=== PATIENT | male | born 1930 | race Caucasian/White ===

== ENCOUNTER 2017-08-21 14:52 | Inpatient (IN) ==
--- NOTE | 2017-08-21 17:39 | CT ---
EXAM: CT chest without intravenous contrast 08/21/2017. Sagittal and coronal reformatted images obt ained HISTORY: Cough COMPARISON: None. FINDINGS: The heart size appears within normal limits. There is no pericardial effusion. Small hiatal hernia. 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 Multifocal atelectasis. There is no pulmonary consolidation, effusion or pneumothorax. Limited views of the upper abdomen show no acute abnormality. IMPRESSION: 1. 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 2. Multifocal atelectasis 3. Small hiatal hernia.
--- NOTE | 2017-08-21 18:58 | ED.PDOC ---
General ED Provider: Dr. NANETTE STALEY Chief Complaint: Respiratory Complaint Stated Complaint: cough, flu like symptoms Time Seen by Physician: 15:00 Mode of Arrival: Wheelchair Information Source: Patient Exam Limitations: No limitations Primary Care Provider: ROSSANA GERONIMO Nursing and Triage Documentation Reviewed and Agree: Yes Reviewed sepsis parameters & appropriate labs ordered?: Yes System Inflammatory Response Syndrome: Not Applicable Sepsis Protocol: For patient's 13 years and over: Temp is 96.8 and below OR 101 and greater Pulse >90 BPM Resp >20/minute Acutely Altered Mental Status Are patient's symptoms suggestive of a new infection, such as: -Pneumonia -Skin, Soft Tissue -Endocarditis -UTI -Bone, Joint Infection -Implantable Device -Acute Abdominal Infection -Wound Infection -Meningitis -Blood Stream Catheter Infection -Unknown System Inflammatory Response Syndrome: Not Applicable Respiratory Complaint Exam - Respiratory Complaint/Exam Onset/Duration: flu like symptoms x1 day Symptoms Are: Still present Timing: Constant Initial Severity: Moderate Current Severity: Moderate Location: Throat, Chest Character: Reports: Non-productive cough Aggravating: Reports: URI Alleviating: Reports: None Associated Signs and Symptoms: Reports: URI, Nasal congestion, Sore throat Related History: Reports: Similar episode History of Healthcare-Acquired Pneumonia: No Review of Systems - Review Of Systems Constitutional: Reports: Chills Eyes: Reports: No symptoms Ears, Nose, Mouth, Throat: Reports: No symptoms Respiratory: Reports: Cough, Wheezing Cardiac: Reports: No symptoms GI: Reports: No symptoms : Reports: No symptoms Musculoskeletal: Reports: No symptoms Skin: Reports: No symptoms Neurological: Reports: No symptoms Endocrine: Reports: No symptoms Hematologic/Lymphatic: Reports: No symptoms All Other Systems: Reviewed and Negative Past Medical History - Past Medical History Previously Healthy: Yes Endocrine: Reports: DM 2 Cardiovascular: Reports: Hypertension Respiratory: Reports: None Hematological: Reports: None Gastrointestinal: Reports: None Genitourinary: Reports: None Neuro/Psych: Reports: None Musculoskeletal: Reports: None Cancer: Reports: None - Surgical History General Surgical History: Reports: None - Family History Family History: Reports: None - Social History Smoking Status: Former smoker Hx Substance Use: No Alcohol Screening: None Physical Exam - Physical Exam Appearance: Well-appearing, No pain distress, Well-nourished Eyes: KYLE, EOMI, Conjunctiva clear ENT: Ears normal, Nose normal, Oropharynx normal Respiratory: Airway patent, Breath sounds clear, Breath sounds equal, Respirations nonlabored Cardiovascular: RRR, Pulses normal, No rub, No murmur GI/: Soft, Nontender, No masses, Bowel sounds normal, No Organomegaly Musculoskeletal: Normal strength, ROM intact, No edema, No calf tenderness Skin: Warm, Dry, Normal color Neurological: Sensation intact, Motor intact, Reflexes intact, Cranial nerves intact, Alert, Oriented Psychiatric: Affect appropriate, Mood appropriate Interpretation - Radiology Interpretation Radiology Interpretation By: Radiologist Radiology Results: No acute changes Physician Notification - Case Discussed Physician Notified: price Time of Notification: 18:59 Admit To: Inpatient Critical Care Note - Critical Care Note Total Time (mins): 0 Course - Course Hematology/Chemistry: 08/21/17 16:41 08/21/17 16:41 Orders, Labs, Meds: Lab Review 08/21/17 08/21/17 08/21/17 16:41 16:41 16:41 WBC 6.13 RBC 4.15 L Hgb 13.0 L Hct 39.0 L MCV 94.0 MCH 31.3 H MCHC 33.3 RDW Coeff of Britney 13.9 Plt Count 161 Immature Gran % (Auto) 0.3 Neut % (Auto) 86.7 Lymph % (Auto) 5.2 L Lassen % (Auto) 6.4 Eos % (Auto) 1.1 Baso % (Auto) 0.3 Immature Gran # (Auto) 0.0 Neut # 5.3 Lymph # 0.3 L Lassen # 0.4 Eos # 0.1 Baso # 0.0 Sodium 138 Potassium 4.7 Chloride 101 Carbon Dioxide 28 Anion Gap 13.7 BUN 16 Creatinine 1.02 Estimated GFR (MDRD) 69.00 BUN/Creatinine Ratio 15.68 Glucose 160 H Lactic Acid Calcium 9.7 Total Bilirubin 0.6 AST 20 ALT 12 Alkaline Phosphatase 44 L Total Protein 6.8 Albumin 3.2 L Globulin 3.6 Albumin/Globulin Ratio 0.89 Procalcitonin < 0.05 Influenza A (Rapid) Influenza B (Rapid) 08/21/17 08/21/17 16:41 16:41 WBC RBC Hgb Hct MCV MCH MCHC RDW Coeff of Britney Plt Count Immature Gran % (Auto) Neut % (Auto) Lymph % (Auto) Lassen % (Auto) Eos % (Auto) Baso % (Auto) Immature Gran # (Auto) Neut # Lymph # Lassen # Eos # Baso # Sodium Potassium Chloride Carbon Dioxide Anion Gap BUN Creatinine Estimated GFR (MDRD) BUN/Creatinine Ratio Glucose Lactic Acid 22.7 H Calcium Total Bilirubin AST ALT Alkaline Phosphatase Total Protein Albumin Globulin Albumin/Globulin Ratio Procalcitonin Influenza A (Rapid) Positive by naat H Influenza B (Rapid) Negative by naat Orders Category Date Time Status BLOOD CULTURE (ED ONLY) Stat LAB 08/21/17 16:41 Received CBC W/ AUTO DIFF Stat LAB 08/21/17 16:41 Completed COMPREHENSIVE METABOLIC PANEL Stat LAB 08/21/17 16:41 Completed FLU A/B MOLECULAR Stat LAB 08/21/17 16:41 Completed LACTIC ACID Stat LAB 08/21/17 16:41 Completed MOLECULAR GROUP A STREP Stat LAB 08/21/17 16:41 Completed PROCALCITONIN Stat LAB 08/21/17 16:[address] CHEST W/O CONTRAST Stat RADS 08/21/17 16:21 Completed Vital Signs: Temp Pulse Resp BP Pulse Ox 08/21/17 14:54 99.4 F 92 H 22 121/68 94 L Departure - Departure Time of Disposition: 18:58 Disposition: HOME SELF-CARE Discharge Problem: Influenza A Anemia Qualifiers: Anemia type: unspecified type Qualified Code(s): D64.9 - Anemia, unspecified Instructions: Influenza (ED) Condition: Good Pt referred to PMD for follow-up: Yes IPMP verified?: Yes Additional Instructions: Please call your Family Physician as soon as possible to schedule a follow-up appointment. Allergies/Adverse Reactions: Allergies aspirin Adverse Reaction (Verified 08/21/17 15:06) Home Medications: Ambulatory Orders Calcium Carbonate/Vitamin D3 [Calcium 600 + Vit D Tablet] 1 each PO BID Clonidine HCl [Clonidine HCl ER] 0.1 mg PO BID 08/21/17 Finasteride [Proscar] 5 mg PO DAILY 08/21/17 Glipizide [Glipizide Xl] 5 mg PO BID 08/21/17 Levothyroxine Sodium 137 mcg PO DAILY 08/21/17 Lisinopril [Zestril] 10 mg PO BID 08/21/17 Metformin HCl [Metformin HCl ER] 500 mg PO BID 08/21/17 Pioglitazone HCl [Actos] 30 mg PO DAILY 08/21/17 Pravastatin Sodium [Pravachol] 80 mg PO DAILY 08/21/17 Tamsulosin HCl [Flomax] 0.4 mg PO DAILY 08/21/17 Disposition Discussed With: Patient
[2017-08-21] MEDS ORDERED: TYLENOL PO PRN (19:51)
[2017-08-21] MEDS ORDERED: ZOSYN 3.375 GM 3.375 GM in SODIUM CHLORIDE 50 ML IV SCH (20:00)
[2017-08-21] MEDS ORDERED: SOLU-MEDROL 40 MG IVP SCH (20:00)
[2017-08-21] MEDS ORDERED: VANCOMYCIN 1,000 MG in SODIUM CHLORIDE 200 ML IV SCH (20:00)
[2017-08-21] MEDS ORDERED: GLIPIZIDE 5 MG PO SCH (21:00)
[2017-08-21] MEDS ORDERED: CLONIDINE HCL 0.1 MG PO SCH (21:00)
[2017-08-21] MEDS ORDERED: NON-FORMULARY MEDICATION (Metformin Hcl [Metformin Hcl Er] 500 MG) PO SCH (21:00)
[2017-08-21] MEDS ORDERED: NON-FORMULARY MEDICATION (Calcium Carbonate/Vitamin D3 [Calcium 600 + Vit D Tablet] 1 EACH PO SCH (21:00)
[2017-08-21 21:39] VITALS: BMI 38.3
[2017-08-21] MEDS ORDERED: PROSCAR PO STA (22:35)
[2017-08-21] MEDS ORDERED: PRAVACHOL PO STA (22:35)
[2017-08-21] MEDS ORDERED: GLUCOTROL ONE (22:47)
[2017-08-21] MEDS ORDERED: CATAPRES ONE (22:47)
[2017-08-21] MEDS ORDERED: SOLU-MEDROL 40 MG ONE (22:48)
[2017-08-21] MEDS ORDERED: GLUCOPHAGE ONE (22:48)
[2017-08-21] MEDS: TAMIFLU PO SCH ×2 (23:12→23:46)
[2017-08-21] MEDS: ZESTRIL PO SCH (23:12)
[2017-08-21] MEDS: SODIUM CHLORIDE 1,000 ML IV SCH (23:13)
[2017-08-21] MEDS: LOVENOX SUBCUT SCH (23:44)
[2017-08-22] MEDS ORDERED: ZOSYN 3.375 GM 3.375 GM in SODIUM CHLORIDE 50 ML IV SCH (05:00)
[2017-08-22] MEDS ORDERED: SOLU-MEDROL 40 MG ONE (05:16)
[2017-08-22] MEDS: DUONEB NEB SCH ×4 (05:45→16:50)
[2017-08-22] MEDS ORDERED: LEVOTHYROXINE SODIUM 137 MCG PO SCH ×2 (06:30→09:00)
[2017-08-22] MEDS: VANCOMYCIN 1 GM in SODIUM CHLORIDE 250 ML IV SCH ×2 (08:47→20:33)
[2017-08-22] MEDS: LOVENOX SUBCUT SCH (08:48)
[2017-08-22] MEDS: SYNTHROID PO SCH ×2 (08:49→08:50)
[2017-08-22] MEDS: SOLU-MEDROL 40 MG IVP SCH ×2 (08:49→20:33)
[2017-08-22] MEDS: CATAPRES PO SCH ×2 (08:49→20:32)
[2017-08-22] MEDS: GLUCOPHAGE PO SCH ×2 (08:50→17:05)
[2017-08-22] MEDS: GLUCOTROL PO SCH ×2 (08:50→20:33)
[2017-08-22] MEDS: TAMIFLU PO SCH ×2 (08:50→20:32)
[2017-08-22] MEDS: ZESTRIL PO SCH ×2 (08:50→20:32)
[2017-08-22] MEDS: FLOMAX PO SCH (08:50)
[2017-08-22] MEDS: CALCIUM 500 + VIT D 200 MG TABLET PO SCH ×2 (08:50→20:32)
[2017-08-22] MEDS ORDERED: NON-FORMULARY MEDICATION (Pravastatin Sodium [Pravachol] 80 MG) PO SCH ×2 (09:00→21:00)
[2017-08-22] MEDS ORDERED: ACTOS PO SCH (09:00)
[2017-08-22] MEDS ORDERED: PROSCAR PO SCH (09:00)
[2017-08-22] MEDS ORDERED: PIOGLITAZONE HCL 30 MG PO SCH (09:00)
[2017-08-22] MEDS: ZOSYN 3.375 GM 3.375 GM in SODIUM CHLORIDE 50 ML IV SCH ×3 (12:00→23:56)
[2017-08-22] MEDS: SODIUM CHLORIDE 1,000 ML IV SCH (15:55)
[2017-08-22] MEDS: PRAVACHOL PO SCH (20:32)
[2017-08-22] MEDS: PROSCAR PO SCH (20:32)
[2017-08-22] MEDS: ACTOS PO SCH (21:10)
[2017-08-22] MEDS ORDERED: DUONEB NEB ONE (23:10)
[2017-08-22] MEDS: ATROVENT 0.02% NEB NEB SCH (23:10)
[2017-08-23] MEDS: ATROVENT 0.02% NEB NEB SCH ×3 (05:05→16:30)
[2017-08-23] MEDS: ZOSYN 3.375 GM 3.375 GM in SODIUM CHLORIDE 50 ML IV SCH ×4 (05:13→23:08)
[2017-08-23] MEDS: SYNTHROID PO SCH ×2 (05:39)
[2017-08-23] MEDS: VANCOMYCIN 1 GM in SODIUM CHLORIDE 250 ML IV SCH ×2 (08:20→20:39)
[2017-08-23] MEDS: CATAPRES PO SCH ×2 (08:21→20:37)
[2017-08-23] MEDS: FLOMAX PO SCH (08:21)
[2017-08-23] MEDS: LOVENOX SUBCUT SCH (08:21)
[2017-08-23] MEDS: ZESTRIL PO SCH ×2 (08:21→20:37)
[2017-08-23] MEDS: TAMIFLU PO SCH ×2 (08:21→20:37)
[2017-08-23] MEDS: CALCIUM 500 + VIT D 200 MG TABLET PO SCH ×2 (08:21→20:37)
[2017-08-23] MEDS: GLUCOPHAGE PO SCH ×2 (08:21→16:41)
[2017-08-23] MEDS: GLUCOTROL PO SCH ×2 (08:21→20:37)
[2017-08-23] MEDS: SOLU-MEDROL 40 MG IVP SCH ×2 (09:08→20:36)
[2017-08-23] MEDS: SODIUM CHLORIDE 1,000 ML IV SCH (16:39)
[2017-08-23] MEDS: PROSCAR PO SCH (20:36)
[2017-08-23] MEDS: ACTOS PO SCH (20:36)
[2017-08-23] MEDS: PRAVACHOL PO SCH (20:39)
[2017-08-24] MEDS: ATROVENT 0.02% NEB NEB SCH ×4 (00:05→17:59)
[2017-08-24] MEDS: SYNTHROID PO SCH ×2 (05:51→05:52)
[2017-08-24] MEDS: ZOSYN 3.375 GM 3.375 GM in SODIUM CHLORIDE 50 ML IV SCH ×3 (05:53→17:58)
[2017-08-24] MEDS: LOVENOX SUBCUT SCH ×2 (09:23→09:32)
[2017-08-24] MEDS: TAMIFLU PO SCH ×2 (09:24→21:43)
[2017-08-24] MEDS: ZESTRIL PO SCH ×2 (09:24→21:43)
[2017-08-24] MEDS: SOLU-MEDROL 40 MG IVP SCH (09:24)
[2017-08-24] MEDS: FLOMAX PO SCH (09:25)
[2017-08-24] MEDS: CALCIUM 500 + VIT D 200 MG TABLET PO SCH ×2 (09:25→21:43)
[2017-08-24] MEDS: GLUCOTROL PO SCH ×2 (09:25→21:43)
[2017-08-24] MEDS: GLUCOPHAGE PO SCH ×2 (09:25→17:58)
[2017-08-24] MEDS: CATAPRES PO SCH ×2 (09:25→21:44)
[2017-08-24] MEDS: VANCOMYCIN 1 GM in SODIUM CHLORIDE 250 ML IV SCH ×2 (10:28→21:44)
[2017-08-24] MEDS: SODIUM CHLORIDE 1,000 ML IV SCH (18:16)
[2017-08-24] MEDS ORDERED: LASIX IVP STA (18:36)
[2017-08-24] MEDS: PRAVACHOL PO SCH (21:44)
[2017-08-24] MEDS: ACTOS PO SCH (21:44)
[2017-08-24] MEDS: PROSCAR PO SCH (21:44)
[2017-08-25] MEDS: ZOSYN 3.375 GM 3.375 GM in SODIUM CHLORIDE 50 ML IV SCH ×2 (00:05→05:54)
[2017-08-25] MEDS: ATROVENT 0.02% NEB NEB SCH ×5 (00:36→23:20)
[2017-08-25] MEDS: SYNTHROID PO SCH ×2 (05:54→05:55)
--- NOTE | 2017-08-25 07:40 | DI ---
EXAM: Single frontal view of the chest HISTORY: Cough and. COMPARISON: CT chest 08/21/2017 FINDINGS: Cardiomediastinal silhouette is stable at upper limit of normal. There is mild atheroscler otic disease of the aorta. There is no pneumothorax or pleural effusion. There is no consolidation, nodule or mass. The osseous structures are unremarkable. IMPRESSION: No acute cardiopulmonary process or consolidation with stable appearance of the cardiomediastinal janee houette.
[2017-08-25] MEDS: GLUCOPHAGE PO SCH ×2 (09:33→17:31)
[2017-08-25] MEDS: LOVENOX SUBCUT SCH ×2 (09:33→09:36)
[2017-08-25] MEDS: CATAPRES PO SCH ×3 (09:33→20:22)
[2017-08-25] MEDS: ZESTRIL PO SCH ×2 (09:33→20:23)
[2017-08-25] MEDS: TAMIFLU PO SCH ×2 (09:33→20:22)
[2017-08-25] MEDS: CALCIUM 500 + VIT D 200 MG TABLET PO SCH ×2 (09:33→20:23)
[2017-08-25] MEDS: FLOMAX PO SCH (09:33)
[2017-08-25] MEDS: GLUCOTROL PO SCH ×2 (09:34→20:22)
[2017-08-25] MEDS: ACTOS PO SCH (20:21)
[2017-08-25] MEDS: PRAVACHOL PO SCH (20:21)
[2017-08-25] MEDS: PROSCAR PO SCH (20:23)
[2017-08-26] MEDS: ATROVENT 0.02% NEB NEB SCH ×3 (05:06→16:15)
[2017-08-26] MEDS: SYNTHROID PO SCH ×2 (05:51)
[2017-08-26] MEDS: CATAPRES PO SCH ×2 (09:41→14:41)
[2017-08-26] MEDS: CALCIUM 500 + VIT D 200 MG TABLET PO SCH (09:41)
[2017-08-26] MEDS: FLOMAX PO SCH (09:42)
[2017-08-26] MEDS: GLUCOTROL PO SCH (09:42)
[2017-08-26] MEDS: GLUCOPHAGE PO SCH ×2 (09:42→17:04)
[2017-08-26] MEDS: LOVENOX SUBCUT SCH (09:43)
[2017-08-26] MEDS: TAMIFLU PO SCH (09:43)
[2017-08-26] MEDS: ZESTRIL PO SCH (09:43)
[2017-08-26 14:42] VITALS: BP 163/85; TEMP 97.7
--- NOTE | 2017-11-20 09:28 | HP ---
CHIEF COMPLAINT: He is coughing and he can't breathe. DISCUSSION: This is an 87 year old gentleman who presented to the emergency department with flu like symptoms with cough and congestion. This has been going on for about 3- 4 days. The patient felt as if he couldn't breathe well. He was seen in the emergency department with a low grade temperature and slightly hypoxic with pulse oximetry of 94%. In the emergency department he was found to have radiographic evidence of pneumonia as well as influenza A on testing. Because of his age, relative hypoxia and his pneumonia seen on chest CT the patient was then admitted to my services in Dr. Denson's absence for the above. PAST MEDICAL HISTORY: MEDICATIONS: Clonidine Proscar Glipizide Levothyroxine Zestril Metformin Actos Pravachol Flomax ALLERGIES: Aspirin PAST MEDICAL HISTORY: Hypertension BPH Diabetes Type 2 Hyperlipidemia SOCIAL HISTORY: The patient is a previous smoker and denies any alcohol or illicit drug use. FAMILY HISTORY: Reviewed and thought not to be pertinent to discussion. REVIEW OF SYSTEMS: No headaches, visual changes, tinnitus, hemoptysis, blood in the stool, urinary symptoms or seizures. The patient has cough, congestion, shortness of breath, nasal congestion, sore throat. PHYSICAL EXAMINATION: V/S: Temperature 99.4, pulse 92, respiratory 22, blood pressure 121/68. GENERAL: 87 year old gentleman who appears stated age, he alert times three. HEENT: Pupils are round. NECK: Supple. CHEST: Bilateral rales and rhonchi CARDIOVASCULAR: Regular rate and rhythm. ABDOMEN: Soft, nontender. EXTREMITIES: Distal extremities without cyanosis or edema. ASSESSMENT: 1. Acute respiratory failure secondary to Influenza A 2. Pneumonia PLAN: 1. Admission 2. Antibiotics 3. NEBS treatment 4. Will follow oximetry Please see orders. MTDD
--- NOTE | 2017-11-20 09:41 | DS ---
PRINCIPAL DIAGNOSIS: 1. Acute respiratory 2. Influenza A 3. Bilateral pneumonia DISCUSSION: This is an 87 year old gentleman who presented to the emergency department with flu like symptoms with cough and congestion. This has been going on for about 3- 4 days. The patient felt as if he couldn't breathe well. He was seen in the emergency department with a low grade temperature and slightly hypoxic with pulse oximetry of 94%. In the emergency department he was found to have radiographic evidence of pneumonia as well as influenza A on testing. Because of his age, relative hypoxia and his pneumonia seen on chest CT the patient was then admitted to my services in Dr. Denson's absence for the above. CLINICAL COURSE: The patient was admitted with antibiotics and Tamiflu for treatment of the influenza. He was given updrafts. His oximetry and cough improved. We followed renal functions and continued to improve as he did defervesce. His oxygenation improved and repeat radiographs did reveal improvement in his pneumonia. At time of discharge he was ambulatory and had good appetite and at this point we felt that patient was stable for discharge. At this point the patient was discharged with medication as noted in the discharge document. He will followup with Dr. Denson in one week. Please see orders. MTDD
== END 2017-08-26 19:25 | disposition home or self-care (01) | DRG 193 ==
LOC: ED 14:52 → MEDSURG A 20:38
PROVIDERS: ADMIT Family Medicine; ATTEND Family Medicine
DX: J10.00 Influenza due to other identified influenza virus with unspecified type of pneumonia (principal); J96.01 Acute respiratory failure with hypoxia; D64.9 Anemia, unspecified; E11.9 Type 2 diabetes mellitus without complications; Z87.891 Personal history of nicotine dependence; Z79.84 Long term (current) use of oral hypoglycemic drugs; Z79.899 Other long term (current) drug therapy
CPT/HCPCS: 36415; 80048; 80053; 80202; 82550; 82553; 82962; 83605; 84145; 84484; 85025; 87040; 87502; 87651; 93005; 93010; 94640; 99284

== ENCOUNTER 2017-09-04 14:51 | Outpatient (CLI) ==
--- NOTE | 2017-09-04 15:35 | DI ---
Exam: Two x-rays of the chest. Comparison: 08/24/2017. Reason for exam: Cough. FINDINGS: Partially calcified pleural plaque seen in the left hemithorax. No pneumothorax, pleural effusion, or focal consolidation. The cardiac silhouette is not enlarged. There is tortuosity of th e thoracic aorta. Impression: No acute cardiopulmonary process.
== END 2017-09-04 14:52 | disposition home or self-care (01) ==
LOC: RAD 14:51
PROVIDERS: ATTEND Family Medicine
DX: R05 Cough (principal)

== ENCOUNTER 2017-11-18 13:35 | Observation (INO) ==
[2017-11-18 13:59] VITALS: BMI 36.9
[2017-11-18] MEDS ORDERED: VALTREX PO SCH (15:30)
[2017-11-18] MEDS: SODIUM CHLORIDE 1,000 ML IV SCH (15:34)
[2017-11-18] MEDS ORDERED: GLUCOPHAGE PO SCH (17:30)
[2017-11-18] MEDS: GLIPIZIDE 5 MG PO SCH (20:22)
[2017-11-18] MEDS: ZESTRIL PO SCH (20:25)
[2017-11-18] MEDS: NON-FORMULARY MEDICATION (Calcium Carbonate/Vitamin D3 [Calcium 600 + Vit D Tablet] 1 EACH PO SCH (20:26)
[2017-11-18] MEDS ORDERED: NON-FORMULARY MEDICATION (Metformin Hcl [Metformin Hcl Er] 500 MG) PO SCH (21:00)
[2017-11-18] MEDS ORDERED: NON-FORMULARY MEDICATION (Pravastatin Sodium [Pravachol] 80 MG) PO SCH (21:00)
[2017-11-18] MEDS ORDERED: PROSCAR PO SCH (21:00)
[2017-11-18] MEDS ORDERED: MIRALAX PO SCH (21:00)
[2017-11-18] MEDS ORDERED: PIOGLITAZONE HCL 30 MG PO SCH (21:00)
[2017-11-18] MEDS ORDERED: XANAX PO SCH (21:00)
[2017-11-19] MEDS: SODIUM CHLORIDE 1,000 ML IV SCH (03:36)
[2017-11-19] MEDS ORDERED: LEVOTHYROXINE SODIUM 137 MCG PO SCH ×2 (06:30)
[2017-11-19] MEDS ORDERED: FLOMAX PO SCH (09:00)
[2017-11-19] MEDS ORDERED: CELEXA PO SCH (09:00)
[2017-11-19] MEDS: NON-FORMULARY MEDICATION (Metformin Hcl [Metformin Hcl Er] 500 MG) PO SCH ×2 (09:29→17:24)
[2017-11-19] MEDS ORDERED: SODIUM CHLORIDE 1,000 ML IV SCH (09:30)
[2017-11-19] MEDS: ZESTRIL PO SCH (09:31)
[2017-11-19] MEDS: NON-FORMULARY MEDICATION (Calcium Carbonate/Vitamin D3 [Calcium 600 + Vit D Tablet] 1 EACH PO SCH (09:34)
[2017-11-19] MEDS: VALTREX PO SCH ×2 (09:35→14:00)
[2017-11-19] MEDS ORDERED: GLIPIZIDE 5 MG PO SCH (09:45)
[2017-11-19] MEDS: GLIPIZIDE 5 MG PO SCH (10:56)
[2017-11-19 17:36] VITALS: BP 141/69; TEMP 98.5
[2017-11-19] MEDS ORDERED: ALPRAZOLAM 0.25 MG PO SCH (21:00)
== END 2017-11-19 17:45 | disposition home or self-care (01) ==
LOC: MEDSURG B 13:35
PROVIDERS: ADMIT Family Medicine; ATTEND Family Medicine
DX: R53.83 Other fatigue (principal); R53.1 Weakness; R63.0 Anorexia; B02.9 Zoster without complications; E87.1 Hypo-osmolality and hyponatremia; E11.9 Type 2 diabetes mellitus without complications; I10 Essential (primary) hypertension; G25.0 Essential tremor; F41.8 Other specified anxiety disorders; Z79.84 Long term (current) use of oral hypoglycemic drugs; Z79.899 Other long term (current) drug therapy; Z91.81 History of falling; Z87.891 Personal history of nicotine dependence
CPT/HCPCS: 36415; 80048; 80053; 85007; 85025